=== PATIENT | male | born 1940 | race Caucasian/White ===

== ENCOUNTER → 2018-03-04 | Outpatient (CLI) | payer MEDICARE, OTHER ==
[~2018-03-04] MED LIST: ALBUTEROL SULFATE 0.083% NEB 2.5 MG/3 ML AMPUL NEB ONE
--- NOTE | 2018-03-06 15:26 | Pulmonary Function Test ---
Pulmonary Function Test Date of Procedure:: 03/04/18 INDICATION:: Dyspnea Referring Provider: Dr.A. Garcia Metal Bonder: Evie Paredes COMMISSARY CLERK, COOPERATIVE EXTENSION AGENT - Report Spirometry: FVC 3.15 L 79% postbronchodilator 3.38 L 85% FEV1 1.77 L 57% postbronchodilator 2.05 L 66% FEV1/FVC % 56 postbronchodilator 60 predicted 77 FEF 25-75% 0.73 24% postbronchodilator 0.91 25% Lung Volume: Total lung capacity 5.96L 91% Vital capacity 3.15L 79% IC 2.60 FRC N 2 3.36 100% ERV 0.32 RV 2.80 103% RV/TLC % 47 predicted 43 Diffusion Capactity: DLCO 19.7 84% DLCO/VA 3.98 115% Impression: Study demonstrates moderate obstructive ventilatory defect with good response to bronchodilator therapy. There is no evidence for restrictive ventilatory defect, hyperinflation or air trapping. Diffusion capacity is within normal limits.
== END ==
LOC: RT 11:40
PROVIDERS: ATTEND Internal Medicine Cardiovascular Disease
DX: I26.99 Other pulmonary embolism without acute cor pulmonale (principal)
CPT/HCPCS: 94729; 94727; 94060; A9270